=== PATIENT | female | born 1950 | race Caucasian/White ===

== ENCOUNTER 2020-08-20 15:30 | Inpatient (IN) ==
[2020-08-20] MEDS ORDERED: SODIUM CHLORIDE 0.9% 500 ML IV STA (16:11)
[2020-08-20] MEDS ORDERED: SODIUM CHLORIDE 0.9% 1,000 ML IV STA ×2 (16:12→17:30)
[2020-08-20] MEDS ORDERED: DILTIAZEM 25 MG/5 ML VIAL IV ONE (16:16)
[2020-08-20 16:28] LABS: Basophils % 0.1 % (0.0-0.8); Eosinophils # 0.1 10*3/uL (0.0-0.87); Eosinophils % 1.2 % (0.00-10.9); Hematocrit 38.6 VOL% (35.7-47.0); Hemoglobin 12.3 GM/DL (12.0-16.0); Immature Granulocytes % 0.4 %; Immature Granulocytes Absolute 0.03 #; Lymphocytes # 1.9 10*3/uL (1.4-4.0); Lymphocytes % 22.2 % (21.3-54.2); Mean Corpuscular HGB Conc 31.9 GM/DL (32-36); Mean Corpuscular Volume 87.9 FL (87-102); Mean Platelet Volume 11.1 FL (9.6-12.0); Monocytes % 9.5 % (1.7-12.7); Neutrophils % 66.6 % (38.7-73.9); Platelet Count 204 T/CUMM (130-400); Red Blood Count 4.39 MC/CUMM (3.8-5.5); Red Cell Distribution Width 14.6 % (9.3-17.3); White Blood Count 8.6 T/CUMM (4-12)
[2020-08-20 16:44] LABS: Bacteria,Urine Occasional /HPF (Few); Bilirubin,Urine Negative (Negative); Blood, Urine Negative (Negative); Glucose,Urine (UA) Negative (Negative); Ketones,Urine Negative (Negative); Mucus,Urine Occasional /LPF (Occasional); Nitrite,Urine Negative (Negative); Protein,Urine Negative; Urine Appearance CLEAR (Clear); Urine Color Straw (Yellow); Urine Specific Gravity 1.006 (1.001-1.035); Urine Urobilinogen < 2.0 EU/DL (0.2-1.0)
[2020-08-20] MEDS ORDERED: DILTIAZEM 100 MG VIAL.ADD IV ONE (17:21)
[2020-08-20] MEDS ORDERED: DILTIAZEM 50 MG/10 ML VIAL IV STA (17:23)
[2020-08-20 17:27] LABS: Sodium 136 MMOL/L (136-145)
[2020-08-20 17:29] LABS: Calcium 10.1 MG/DL (8.5-10.1)
[2020-08-20 17:30] LABS: Albumin 3.4 G/DL (3.4-5.0); Blood Urea Nitrogen 63 MG/DL (7-18); Carbon Dioxide 16 MMOL/L (21-32); Glucose 84 MG/DL (74-106)
[2020-08-20] MEDS: DILTIAZEM INJ 100 MG in SODIUM CHLORIDE 0.9% 100 ML IV SCH (17:32)
[2020-08-20 17:33] LABS: Alanine Aminotransferase 10 U/L (13-56); Estimated Glom Filtration Rate 34 ML/MIN
[2020-08-20 17:34] LABS: Aspartate Amino Transferase 11 U/L (0-37)
[2020-08-20 17:35] LABS: Bilirubin,Total < 0.39 MG/DL (0.2-1.0); Total Protein 7.3 G/DL (6.4-8.2)
[2020-08-20 17:36] LABS: Alkaline Phosphatase 84 U/L (45-117)
[2020-08-20] MEDS ORDERED: INSULIN REGULAR 100 UNIT/ML IV ONE (17:40)
[2020-08-20] MEDS ORDERED: DEXTROSE 50% 25 GM/50 ML VIAL IV STA (17:40)
[2020-08-20 17:41] LABS: Potassium 8.6 MMOL/L (3.5-5.1)
[2020-08-20] MEDS ORDERED: SODIUM POLYSTYRENE SULFATE 15 GM/60 ML BOTTLE PO STA (17:41)
[2020-08-20] MEDS ORDERED: ALBUTEROL 2.5 MG/3 ML NEB RESP TX STA (17:42)
[2020-08-20] MEDS ORDERED: CALCIUM GLUCONATE 1,000 MG in SODIUM CHLORIDE 0.9% 100 ML IV ONE (17:42)
[2020-08-20] MEDS ORDERED: SODIUM BICARBONATE 50 MEQ/50 ML VIAL IV STA ×2 (18:00→18:46)
[2020-08-20] MEDS ORDERED: ONDANSETRON 4 MG/2 ML VIAL IV PRN (18:05)
[2020-08-20] MEDS ORDERED: ENOXAPARIN 30 MG/0.3 ML SYRINGE SUBCUT SCH (18:30)
[2020-08-20 18:35] VITALS: BP 118/64
[2020-08-20] MEDS ORDERED: METOPROLOL TARTRATE 5 MG/5 ML VIAL IV ONE (18:42)
[2020-08-20] MEDS ORDERED: DIGOXIN 0.5 MG/2 ML AMP IV STA (18:46)
[2020-08-20] MEDS: SODIUM ZIRCONIUM CYCLOSILICATE 10 GM PACK PO SCH ×2 (19:14→21:04)
[2020-08-20 20:05] LABS: Calcium 9.1 MG/DL (8.5-10.1); Osmolality,Calculated 297.1 MOS/KG (273-304)
[2020-08-20 20:16] LABS: Potassium 6.4 MMOL/L (3.5-5.1)
[2020-08-20] MEDS: SODIUM BICARB INJ 100 MEQ in DEXTROSE 5% 1,000 ML IV SCH (20:57)
[2020-08-20] MEDS: METOPROLOL TARTRATE 5 MG/5 ML VIAL IV PRN ×2 (21:22→21:48)
[2020-08-20] MEDS ORDERED: AMIODARONE 150 MG/3 ML VIAL ONE (21:57)
[2020-08-20] MEDS ORDERED: AMIODARONE 450 MG/9 ML VIAL IV ONE (21:57)
[2020-08-20] MEDS ORDERED: AMIODARONE INJ 150 MG in DEXTROSE 5% 100 ML IV ONE (21:58)
[2020-08-20] MEDS ORDERED: AMIODARONE INJ 450 MG in DEXTROSE 5% 241 ML IV SCH (22:00)
[2020-08-21] MEDS: SODIUM BICARB INJ 100 MEQ in DEXTROSE 5% 1,000 ML IV SCH ×5 (04:11→23:26)
[2020-08-21] MEDS: AMIODARONE INJ 450 MG in DEXTROSE 5% 241 ML IV SCH ×2 (04:12→20:31)
[2020-08-21 05:51] LABS: Basophils % 0.3 % (0.0-0.8); Eosinophils # 0.1 10*3/uL (0.0-0.87); Eosinophils % 1.4 % (0.00-10.9); Hematocrit 37.1 VOL% (35.7-47.0); Hemoglobin 11.9 GM/DL (12.0-16.0); Immature Granulocytes % 0.4 %; Immature Granulocytes Absolute 0.04 #; Lymphocytes # 1.7 10*3/uL (1.4-4.0); Lymphocytes % 18.4 % (21.3-54.2); Mean Corpuscular HGB Conc 32.1 GM/DL (32-36); Mean Corpuscular Volume 89.2 FL (87-102); Mean Platelet Volume 11.2 FL (9.6-12.0); Monocytes % 12.7 % (1.7-12.7); Neutrophils % 66.8 % (38.7-73.9); Platelet Count 181 T/CUMM (130-400); Red Blood Count 4.16 MC/CUMM (3.8-5.5); Red Cell Distribution Width 14.9 % (9.3-17.3); White Blood Count 9.3 T/CUMM (4-12)
[2020-08-21 06:02] LABS: Calcium 9.1 MG/DL (8.5-10.1); Osmolality,Calculated 284.7 MOS/KG (273-304); Potassium 5.8 MMOL/L (3.5-5.1)
[2020-08-21 07:50] LABS: Platelet Estimate Normal
[2020-08-21] MEDS: METOPROLOL TARTRATE 5 MG/5 ML VIAL IV PRN (07:53)
[2020-08-21] MEDS: PANTOPRAZOLE 40 MG TABLET PO SCH (09:03)
[2020-08-21] MEDS: SODIUM ZIRCONIUM CYCLOSILICATE 10 GM PACK PO SCH ×3 (09:03→20:30)
[2020-08-21] MEDS: ASPIRIN EC 81 MG TABLET PO SCH (14:30)
[2020-08-21] MEDS: ASCORBIC ACID 500 MG TABLET PO SCH ×2 (14:30→20:30)
[2020-08-21] MEDS: METOPROLOL SUCCINATE XL 50 MG TABLET PO SCH (14:31)
[2020-08-21] MEDS: ENOXAPARIN 100 MG/ML SYRINGE SUBCUT SCH ×2 (14:31→23:26)
[2020-08-21] MEDS: AMIODARONE 200 MG TABLET PO SCH ×2 (16:16→20:30)
[2020-08-21] MEDS: oxyCODONE/ACETAMINOPHEN 5-325 MG TABLET PO PRN (16:17)
[2020-08-21] MEDS: DILTIAZEM INJ 100 MG in SODIUM CHLORIDE 0.9% 100 ML IV SCH (18:27)
[2020-08-21] MEDS: SIMVASTATIN 20 MG TABLET PO SCH (20:30)
[2020-08-22] MEDS: SODIUM BICARB INJ 100 MEQ in DEXTROSE 5% 1,000 ML IV SCH (04:51)
[2020-08-22 06:01] LABS: Basophils % 0.3 % (0.0-0.8); Eosinophils # 0.2 10*3/uL (0.0-0.87); Hematocrit 35.2 VOL% (35.7-47.0); Hemoglobin 11.8 GM/DL (12.0-16.0); Immature Granulocytes % 0.4 %; Immature Granulocytes Absolute 0.03 #; Lymphocytes # 2.1 10*3/uL (1.4-4.0); Lymphocytes % 26.6 % (21.3-54.2); Mean Corpuscular HGB Conc 33.5 GM/DL (32-36); Mean Corpuscular Volume 84.6 FL (87-102); Mean Platelet Volume 11.3 FL (9.6-12.0); Monocytes % 10.3 % (1.7-12.7); Neutrophils % 60.4 % (38.7-73.9); Platelet Count 206 T/CUMM (130-400); Red Blood Count 4.16 MC/CUMM (3.8-5.5); Red Cell Distribution Width 14.6 % (9.3-17.3); White Blood Count 7.9 T/CUMM (4-12)
[2020-08-22 06:36] LABS: Calcium 8.6 MG/DL (8.5-10.1); Osmolality,Calculated 278.5 MOS/KG (273-304); Potassium 3.5 MMOL/L (3.5-5.1)
[2020-08-22] MEDS: METOPROLOL SUCCINATE XL 50 MG TABLET PO SCH (08:00)
[2020-08-22] MEDS: AMIODARONE 200 MG TABLET PO SCH ×2 (08:00→20:27)
[2020-08-22] MEDS: ASPIRIN EC 81 MG TABLET PO SCH (08:00)
[2020-08-22] MEDS: PANTOPRAZOLE 40 MG TABLET PO SCH (08:00)
[2020-08-22] MEDS: SODIUM ZIRCONIUM CYCLOSILICATE 10 GM PACK PO SCH (08:00)
[2020-08-22] MEDS: ASCORBIC ACID 500 MG TABLET PO SCH ×2 (08:00→20:27)
[2020-08-22] MEDS ORDERED: MAGNESIUM SULF RIDER 2 GM/50 ML PREMIX IV ONE (08:30)
[2020-08-22] MEDS: oxyCODONE/ACETAMINOPHEN 5-325 MG TABLET PO PRN ×2 (09:21→18:20)
[2020-08-22] MEDS: ENOXAPARIN 100 MG/ML SYRINGE SUBCUT SCH ×2 (12:42→23:39)
[2020-08-22] MEDS ORDERED: POTASSIUM CHLORIDE 20 MEQ TABLET PO ONE (20:08)
[2020-08-22] MEDS: SIMVASTATIN 20 MG TABLET PO SCH (20:27)
[2020-08-23] MEDS: oxyCODONE/ACETAMINOPHEN 5-325 MG TABLET PO PRN (06:23)
[2020-08-23 06:24] LABS: Basophils # 0.1 10*3/uL (0.0-0.2); Basophils % 0.7 % (0.0-0.8); Eosinophils # 0.2 10*3/uL (0.0-0.87); Eosinophils % 2.8 % (0.00-10.9); Hematocrit 42.3 VOL% (35.7-47.0); Hemoglobin 13.6 GM/DL (12.0-16.0); Immature Granulocytes % 0.4 %; Immature Granulocytes Absolute 0.03 #; Lymphocytes # 2.2 10*3/uL (1.4-4.0); Lymphocytes % 28.9 % (21.3-54.2); Mean Corpuscular HGB Conc 32.2 GM/DL (32-36); Mean Platelet Volume 11.1 FL (9.6-12.0); Neutrophils % 55.2 % (38.7-73.9); Platelet Count 199 T/CUMM (130-400); Red Cell Distribution Width 14.6 % (9.3-17.3); White Blood Count 7.5 T/CUMM (4-12)
[2020-08-23 06:40] LABS: Calcium 9.2 MG/DL (8.5-10.1); Osmolality,Calculated 273.5 MOS/KG (273-304); Potassium 3.9 MMOL/L (3.5-5.1)
[2020-08-23] MEDS: PANTOPRAZOLE 40 MG TABLET PO SCH (08:10)
[2020-08-23] MEDS: ASPIRIN EC 81 MG TABLET PO SCH (08:10)
[2020-08-23] MEDS: AMIODARONE 200 MG TABLET PO SCH (08:10)
[2020-08-23] MEDS: ASCORBIC ACID 500 MG TABLET PO SCH (08:10)
[2020-08-23] MEDS: METOPROLOL SUCCINATE XL 50 MG TABLET PO SCH (08:10)
[2020-08-23] MEDS: ENOXAPARIN 100 MG/ML SYRINGE SUBCUT SCH (11:23)
[2020-08-23] MEDS: POTASSIUM PHOS/SOD PHOS POWDER 250 MG PACK PO SCH ×2 (13:18)
[2020-08-23] MEDS ORDERED: AMIODARONE 200 MG TABLET PO SCH (21:00)
[2020-08-23] MEDS ORDERED: APIXABAN 5 MG TABLET PO SCH (21:00)
== END 2020-08-23 15:41 | disposition home or self-care (01) | DRG 683 ==
LOC: N.ED 15:30 → SUATTDRO 18:05 → N.EDINP 18:05 → N.CC 19:46
PROVIDERS: ADMIT Family Medicine; ATTEND Internal Medicine